=== PATIENT | male | born 1985 | race Caucasian/White ===

== ENCOUNTER 2016-12-13 15:09 | Emergency (ER) | payer SELFPAY ==
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
--- NOTE | 2016-12-13 16:40 | Diagnostic Imaging Report ---
Left foot (3 views) HISTORY: Pain, trauma Suggestion of soft tissue swelling over the lateral aspect of the foot. No acute bony amenities. No fractures. Joint spaces appear normal. IMPRESSION: 1. No acute bony abnormalities
== END 2016-12-13 16:58 | disposition home or self-care (01) ==
LOC: ER 15:09
DX: R51 Headache (principal)
CPT/HCPCS: 70450-TC; 70486-TC; 72125-TC; 73630-TC-LT; Z7502; Z7610